=== PATIENT | female | born 1960 | race Caucasian/White ===

== ENCOUNTER 2021-08-11 19:08 | Inpatient (IN) | payer OTHER, SELFPAY ==
[2021-08-11] VITALS (29 sets, daily range): BP systolic 180–242; BP diastolic 105–144; PULSE 75–101; RESP 8–84; TEMP 36.1–36.4; O2SAT 86–100
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
--- NOTE | ~2021-08-11 | US_ITS ---
EXAMINATION: US renal BI DATE: 08/13/2021 11:53 INDICATION: Acute kidney injury. TECHNIQUE: Multiple ultrasound grayscale images of the kidneys were obtained. COMPARISON: Chest CT 08/11/2021 FINDINGS: The right kidney measures 9.3 x 5.1 x 5.1 cm. The left kidney measures 10.6 x 4.9 x 5.2 cm. The kidne ys demonstrate normal parenchymal echogenicity. There is no hydronephrosis. The bladder is normal. Th ere is dependent echogenic urine. IMPRESSION: 1. Normal kidneys. No hydronephrosis. Reviewed, dictated and finalized at location A. DOCTORAL SCIENTIST
--- NOTE | ~2021-08-11 | XR_ITS ---
EXAMINATION: XR chest 2V EXAM DATE: 08/11/2021 19:53 INDICATION: Sudden SOB @ 6 PM,Sweating,HX HTN. TECHNIQUE: Frontal and lateral projections of the chest obtained and reviewed. There is no prior corinne dy for comparison. FINDINGS: There is a dual lead pacemaker/AICD seen with leads projecting over the expected locations of the right atrial appendage and right ventricle. Mild cardiomegaly. There is ill-defined bibasilar airspace disease, pneumonia or edema. Please clinically correlate. No pneumothorax. There are no oss eous abnormalities identified. IMPRESSION: Cardiomegaly, ill-defined bibasilar pneumonia or edema. Reviewed, dictated and finalized at location A. BAKERY LABORER
--- NOTE | 2021-08-11 19:36 | ECG_ITS ---
Measurements Intervals [place] Rate: 80 P: 72 MN: 202 QRS: -72 QRSD: 196 T: 96 QT: 445 QTc: 514 Interpretive Statements ATRIAL SENSE- ELECTRONIC VENTRICULAR PACEMAKER BASELINE ARTIFACT- I, III, AVL NO FURTHER INTERPRETATION IS POSSIBLE ATYPICAL ECG Electronically Signed On 08-12-2021 6:54:24 STAFF MECHANICAL ENGINEER by Blayne Deng D.O.
--- NOTE | 2021-08-11 19:41 | PC.NURSE ---
PT PLACED ON 2 L NC IN TRIAGE.
[2021-08-11 20:52] LABS: Basophils Absolute Auto 0.1 K/mm3 (0.0-0.1); Basophils Percent Auto 1.1 % (0.2-1.2); Eosinophils Absolute Auto 0.3 K/mm3 (0-0.3); Eosinophils Percent Auto 2.2 % (0-4.4); Hematocrit 46.7 % (37.0-47.0); Hemoglobin 16.2 g/dL (12.0-15.0); Immature Granulocyte Absolute 0.07 K/mm3 (0.00-0.031); Immature Granulocyte Percent A 0.6 % (0-0.5); Lymphocytes Absolute Auto 2.06 K/mm3 (0.9-3.2); Lymphocytes Percent Auto 17.1 % (18.3-44.2); Mean Corpuscular HGB Conc 34.7 g/dl (32-36); Mean Corpuscular Hemoglobin 32.5 pg (26-34); Mean Corpuscular Volume 93.8 fl (80-100); Mean Platelet Volume 11.1 fl (7.4-10.4); Monocytes Absolute Auto 0.6 K/mm3 (0.1-0.6); Monocytes Percent Auto 5.2 % (2.6-8.5); Neutrophils Absolute Auto 8.9 K/mm3 (1.3-6.7); Neutrophils Percent Auto 73.8 % (45.5-73.1); Platelet Count Result 321 k/mm3 (150-375); Red Blood Count 4.98 M/mm3 (4.2-5.4); White Blood Count 12.1 K/mm3 (4.5-10.0)
[2021-08-11 21:02] LABS: Anion Gap 10 mmol/L (8-16); Blood Urea Nitrogen 28 mg/dL (7-17); Calcium 10.5 mg/dL (8.4-10.2); Carbon Dioxide 28 mmol/L (22-30); Chloride 98 mmol/L (98-107); Estimated CRCL calculation 41 ml/min; Estimated Glomerular Filt Rate 33; Glucose 389 mg/dL (65-110); Lactic Acid Reflex 2.1 mmol/L (0.7-2.1); Potassium 4.5 mmol/L (3.4-5.0); Sodium 136 mmol/L (137-145)
[2021-08-11 21:04] LABS: CRP < 0.5 mg/dL (<1.0); INR 0.9; Prothrombin Time 11.7 Seconds (11.1-14.7)
[2021-08-11 21:07] LABS: D Dimer 1.73 ug/mL (<0.48)
[2021-08-11 21:16] LABS: NT Pro B Type Natriuretic Pept 3630 pg/mL (5-100); Troponin I 0.039 ng/mL (0.000-0.034)
[2021-08-11 21:19] LABS: Lactate Dehydrogenase 540 U/L (313-618)
[2021-08-11] MEDS: ASPIRIN 81 MG CHEWABLE TABLET 324 MG PO (22:07)
[2021-08-11] MEDS: FUROSEMIDE INJ 40 MG/4 ML VIAL IV PUSH (22:07)
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
--- NOTE | 2021-08-11 22:15 | PC.NURSE ---
MD aware of Pt BP. Ordered PO carvedilol
[2021-08-11] MEDS: carvediloL 12.5 MG TABLET PO (22:37)
--- NOTE | 2021-08-11 23:36 | PC.NURSE ---
Alysia drawing 3 hour tropinin, Admit to IMU 206-1 after drawn
--- NOTE | 2021-08-11 23:43 | PC.NURSE ---
3 hour troponin would not show on [facility]. Order cancelled, re-entered STAT trop now.
[2021-08-11 23:49] LABS: Reflex Lactic Acid Yes or No Add Lactic
[2021-08-12] VITALS (15 sets, daily range): BP systolic 130–176; BP diastolic 71–124; PULSE 74–102; RESP 16–24; TEMP 36.2–36.9; O2SAT 93–100; BMI 34.5
--- NOTE | 2021-08-12 | ECHO_ITS ---
Patient Info Name: Michelle Trent Age: 61 years : 1960 Gender: Female Ht: 68 in Wt: 228 lbs BSA: 2.27 m2 HR: 78 bpm BP: 153 / 88 mmHg Heart Rhythm: Sinus Rhythm Technical Quality: Good Exam Date: 08/12/2021 12:05 PM Exam Location: [facility] Patient Status: Inpatient Admit Date: 08/11/2021 Staff Ordering Physician: Angelo Vasquez MD Attending Provider: Uzma Moreno MD Referring Physician: Pedro POOLE; Exam Type: CA echo doppler color flow Study Info Indications - chf Complete two-dimensional, color flow and Doppler transthoracic echocardiogram is performed. Summary 1. Complete two-dimensional, color flow and Doppler transthoracic echocardiogram is performed. 2. Left ventricular chamber dimension is mildly enlarged. 3. Left ventricular systolic function is normal, estimated at 55-60%. 4. There is moderately increased left ventricular wall thickness. 5. Left ventricular septal wall motion is normal. 6. The left ventricular diastolic function is grade I diastolic dysfunction. 7. Left atrial chamber dimension is mildly enlarged. 8. There is mild mitral valve regurgitation. 9. There is mild tricuspid valve regurgitation. Left Ventricle Left ventricular chamber dimension is mildly enlarged. Left ventricular systolic function is normal, estimated at 55-60%. There is moderately increased left ventricular wall thickness. Left ventricular septal wall motion is normal. The left ventricular diastolic function is grade I diastolic dysfunction. Right Ventricle Right ventricular chamber dimension is normal. Right ventricular systolic function is normal. Left Atria Left atrial chamber dimension is mildly enlarged. Right Atria Right atrial chamber dimension is normal. Linear artifact in the right atrium suggestive of catheter(s), pacemaker lead(s), or ICD lead(s). Atrial Septum Intact interatrial septum visualized by color flow imaging. Aortic Valve The aortic valve is trileaflet. There is mild aortic valve sclerosis. There is no aortic valve stenosis. There is trace aortic valve regurgitation. Pulmonic Valve The pulmonic valve is normal. There is no pulmonic valve stenosis. There is trace pulmonic regurgitation. Mitral Valve The mitral valve has calcified annulus. There is no mitral valve stenosis. There is mild mitral valve regurgitation. Tricuspid Valve The tricuspid valve leaflets are normal. There is no significant tricuspid valve stenosis. There is mild tricuspid valve regurgitation. No pulmonary hypertension, estimated pulmonary arterial systolic pressure is 20 mmHg. Pericardium/Pleural The pericardium appears normal. There is no pericardial effusion. Inferior Vena Cava Normal inferior vena cava with <50% collapse upon inspiration consistent with elevated right atrial pressure, 10 mmHg. Aorta The aortic root size at the sinus of Valsalva is normal. Left Ventricular Outflow Tract Name Value Normal LVOT 2D LVOT Diameter 2.1 cm LVOT Doppler LVOT Peak Gradient 4 mmHg LVOT Mean Gradient
[2021-08-12 00:24] LABS: Troponin I 0.051 ng/mL (0.000-0.034)
--- NOTE | 2021-08-12 00:44 | ADMGEN ---
This patient, Michelle Trent, was admitted to IMU Room 206-01 on 08/11/21 at 2357. Patient/family oriented to hospital policies and general routines including ID bracelet, bed and alarms, visiting hours, pain management, procedures, bathroom and other care routines, personal items, smoking policy, room service/diet, and visiting hours. Information on how to activate the Rapid Response Team has been discussed. Patient/Family are encouraged to report perceived risks to care and to ask questions if they do not understand what they are told or what they should do.
[2021-08-12 00:54] LABS: Lactic Acid 1.6 mmol/L (0.7-2.1)
[2021-08-12] MEDS: GABAPENTIN 300 MG CAPSULE 600 MG PO ×4 (02:43→18:09)
[2021-08-12] MEDS: ATORVASTATIN 20 MG TABLET PO ×2 (02:44→20:09)
[2021-08-12 03:55] LABS: Basophils Absolute Auto 0.1 K/mm3 (0.0-0.1); Basophils Percent Auto 0.9 % (0.2-1.2); Eosinophils Absolute Auto 0.1 K/mm3 (0-0.3); Eosinophils Percent Auto 1.2 % (0-4.4); Hematocrit 45.6 % (37.0-47.0); Hemoglobin 15.9 g/dL (12.0-15.0); Immature Granulocyte Absolute 0.05 K/mm3 (0.00-0.031); Immature Granulocyte Percent A 0.4 % (0-0.5); Lymphocytes Absolute Auto 3.19 K/mm3 (0.9-3.2); Lymphocytes Percent Auto 28.2 % (18.3-44.2); Mean Corpuscular HGB Conc 34.9 g/dl (32-36); Mean Corpuscular Hemoglobin 32.3 pg (26-34); Mean Corpuscular Volume 92.5 fl (80-100); Mean Platelet Volume 11.1 fl (7.4-10.4); Monocytes Absolute Auto 0.9 K/mm3 (0.1-0.6); Monocytes Percent Auto 7.7 % (2.6-8.5); Neutrophils Percent Auto 61.6 % (45.5-73.1); Platelet Count Result 338 k/mm3 (150-375); Red Blood Count 4.93 M/mm3 (4.2-5.4); Red Cell Distribution Width 12.9 % (11.5-14.5); White Blood Count 11.3 K/mm3 (4.5-10.0)
[2021-08-12 04:25] LABS: Anion Gap 10 mmol/L (8-16); Blood Urea Nitrogen 29 mg/dL (7-17); Calcium 10.3 mg/dL (8.4-10.2); Carbon Dioxide 32 mmol/L (22-30); Chloride 94 mmol/L (98-107); Estimated CRCL calculation 43 ml/min; Estimated Glomerular Filt Rate 33; Glucose 287 mg/dL (65-110); Potassium 4.2 mmol/L (3.4-5.0); Sodium 136 mmol/L (137-145)
[2021-08-12 04:32] LABS: Troponin I 0.071 ng/mL (0.000-0.034)
[2021-08-12] MEDS: LEVOTHYROXINE SODIUM 112 MCG TABLET PO (06:16)
[2021-08-12 08:03] LABS: Glucose Point of Care 241 mg/dl (65-105)
[2021-08-12] MEDS: ASPIRIN 81 MG ENTERIC TABLET PO (08:41)
[2021-08-12] MEDS: FUROSEMIDE INJ 40 MG/4 ML VIAL IV PUSH (08:42)
[2021-08-12] MEDS: lisinopriL 5 MG TABLET PO (08:42)
[2021-08-12] MEDS: INSULIN GLARGINE (*BKC) 100 UNITS/ML 45 UNITS SUB-Q (09:00)
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
[2021-08-12 13:32] LABS: Glucose Point of Care 268 mg/dl (65-105)
[2021-08-12] MEDS: carvediloL 12.5 MG TABLET BY MOUTH ×2 (13:48→18:10)
[2021-08-12 17:10] LABS: Glucose Point of Care 341 mg/dl (65-105)
--- NOTE | 2021-08-12 17:20 | PHAR ---
HOME MED Liraglutide [Victoza 2-Aden] 0.6 mg/0.1 mL (18 mg/3 mL) pen injector has been verified by Pharmacist.
[2021-08-12] MEDS: INSULIN ASPART (*BKC) 100 UNITS/ML SUB-Q (18:10)
[2021-08-12 21:15] LABS: Glucose Point of Care 293 mg/dl (65-105)
[2021-08-13] VITALS (18 sets, daily range): BP systolic 106–170; BP diastolic 70–91; PULSE 70–99; RESP 16–20; TEMP 36.3–37.1; O2SAT 93–96
[2021-08-13 05:03] LABS: Anion Gap 7 mmol/L (8-16); Blood Urea Nitrogen 38 mg/dL (7-17); Calcium 9.1 mg/dL (8.4-10.2); Carbon Dioxide 32 mmol/L (22-30); Chloride 97 mmol/L (98-107); Estimated CRCL calculation 30 ml/min; Estimated Glomerular Filt Rate 22; Glucose 196 mg/dL (65-110); Potassium 4.2 mmol/L (3.4-5.0); Sodium 136 mmol/L (137-145)
[2021-08-13] MEDS: LEVOTHYROXINE SODIUM 112 MCG TABLET PO (05:16)
[2021-08-13] MEDS: ASPIRIN 81 MG ENTERIC TABLET PO (08:15)
[2021-08-13] MEDS: lisinopriL 5 MG TABLET PO (08:15)
[2021-08-13] MEDS: GABAPENTIN 300 MG CAPSULE 600 MG PO ×3 (08:16→17:45)
[2021-08-13] MEDS: FUROSEMIDE INJ 40 MG/4 ML VIAL IV PUSH (08:16)
[2021-08-13 08:45] LABS: Glucose Point of Care 216 mg/dl (65-105)
[2021-08-13] MEDS: INSULIN ASPART (*BKC) 100 UNITS/ML SUB-Q ×3 (09:04→17:46)
[2021-08-13] MEDS: INSULIN GLARGINE (*BKC) 100 UNITS/ML 45 UNITS SUB-Q (09:04)
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
[2021-08-13 12:44] LABS: Glucose Point of Care 274 mg/dl (65-105)
[2021-08-13 13:02] LABS: Add Urine Microscopic? YES; Appearance Urine Cloudy (Clear); Bacteria Urine 3+ /hpf; Bilirubin Urine Negative (Negative); Blood Urine 1+ (Negative); Color Urine Yellow (Yellow); Glucose Urine UA Negative (Negative); Ketones Urine Negative (Negative); Leukocyte Esterase Ur 3+ LEU/UL (Negative); Nitrate Urine Negative (Negative); Protein Urine 2+ mg/dL (Negative); Squamous Epithelial Cell Urine Few /hpf (Few); Urobilinogen Urine Negative mg/dL (<2.0); WBC Clumps Urine Present /HPF; WBC Urine >75 /hpf
[2021-08-13] MEDS: carvediloL 12.5 MG TABLET BY MOUTH ×2 (13:22→17:45)
[2021-08-13] MEDS: ACETAMINOPHEN 325 MG TABLET 650 MG PO (15:34)
[2021-08-13 15:55] LABS: Albumin Level 4.1 g/dL (3.5-5.1); Anion Gap 10 mmol/L (8-16); Blood Urea Nitrogen 39 mg/dL (7-17); Calcium 9.1 mg/dL (8.4-10.2); Carbon Dioxide 29 mmol/L (22-30); Chloride 96 mmol/L (98-107); Estimated CRCL calculation 28 ml/min; Estimated Glomerular Filt Rate 20; Glucose 203 mg/dL (65-110); Phosphorus 4.7 mg/dL (2.5-4.5); Sodium 135 mmol/L (137-145)
[2021-08-13 19:56] LABS: Glucose Point of Care 210 mg/dl (65-105)
[2021-08-13] MEDS: ATORVASTATIN 20 MG TABLET PO (20:02)
[2021-08-13 21:16] LABS: Glucose Point of Care 245 mg/dl (65-105)
[2021-08-14] VITALS (16 sets, daily range): BP systolic 150–183; BP diastolic 81–99; PULSE 63–93; RESP 14–20; TEMP 36.2–37.3; O2SAT 94–99
[2021-08-14 05:53] LABS: Hematocrit 39.9 % (37.0-47.0); Hemoglobin 13.5 g/dL (12.0-15.0); Mean Corpuscular HGB Conc 33.8 g/dl (32-36); Mean Corpuscular Hemoglobin 31.6 pg (26-34); Mean Corpuscular Volume 93.4 fl (80-100); Mean Platelet Volume 11.2 fl (7.4-10.4); Platelet Count Result 333 k/mm3 (150-375); Red Blood Count 4.27 M/mm3 (4.2-5.4); Red Cell Distribution Width 12.9 % (11.5-14.5); White Blood Count 11.9 K/mm3 (4.5-10.0)
[2021-08-14 05:58] LABS: Albumin Level 3.7 g/dL (3.5-5.1); Anion Gap 10 mmol/L (8-16); Blood Urea Nitrogen 41 mg/dL (7-17); Calcium 9.2 mg/dL (8.4-10.2); Carbon Dioxide 28 mmol/L (22-30); Chloride 96 mmol/L (98-107); Estimated CRCL calculation 25 ml/min; Estimated Glomerular Filt Rate 17; Glucose 231 mg/dL (65-110); Phosphorus 4.6 mg/dL (2.5-4.5); Potassium 4.1 mmol/L (3.4-5.0); Sodium 134 mmol/L (137-145)
[2021-08-14] MEDS: LEVOTHYROXINE SODIUM 112 MCG TABLET PO (06:09)
[2021-08-14 08:14] LABS: Glucose Point of Care 183 mg/dl (65-105)
[2021-08-14] MEDS: GABAPENTIN 300 MG CAPSULE 600 MG PO ×3 (08:29→17:25)
[2021-08-14] MEDS: ASPIRIN 81 MG ENTERIC TABLET PO (08:29)
[2021-08-14] MEDS: GLIMEPIRIDE 2 MG TABLET 4 MG PO (08:29)
[2021-08-14] MEDS: INSULIN GLARGINE (*BKC) 100 UNITS/ML 45 UNITS SUB-Q (08:29)
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
[2021-08-14 12:28] LABS: Glucose Point of Care 271 mg/dl (65-105)
[2021-08-14] MEDS: carvediloL 12.5 MG TABLET BY MOUTH ×2 (12:36→17:25)
[2021-08-14] MEDS: ACETAMINOPHEN 325 MG TABLET 650 MG PO (12:37)
[2021-08-14] MEDS: INSULIN ASPART (*BKC) 100 UNITS/ML SUB-Q ×2 (12:37→17:24)
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
[2021-08-14 12:53] LABS: Creatinine Urine 41.9 mg/dL; Urea Random Urine 231 MG/DL
[2021-08-14 13:18] LABS: Sodium Urine Random 24 meq/L
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
[2021-08-14 16:42] LABS: Glucose Point of Care 212 mg/dl (65-105)
--- NOTE | 2021-08-14 18:43 | PC.NURSE ---
This patient, Michelle Trent, was transferred to [[id number] ] on 08/14/21 at 1820. Personal belongings sent with patient. Report given to [ RUBINA Myers @ 1810]. Appropriate documentation sent with patient.
[2021-08-14] MEDS: ATORVASTATIN 20 MG TABLET PO (21:45)
[2021-08-14 22:14] LABS: Glucose Point of Care 161 mg/dl (65-105)
[2021-08-15] VITALS (11 sets, daily range): BP systolic 142–187; BP diastolic 76–132; PULSE 75–80; RESP 16–20; TEMP 36.1–36.3; O2SAT 94–97
[2021-08-15] MEDS: LEVOTHYROXINE SODIUM 112 MCG TABLET PO (05:30)
[2021-08-15 07:01] LABS: Basophils Absolute Auto 0.1 K/mm3 (0.0-0.1); Basophils Percent Auto 0.9 % (0.2-1.2); Eosinophils Absolute Auto 0.5 K/mm3 (0-0.3); Hematocrit 41.1 % (37.0-47.0); Hemoglobin 14.1 g/dL (12.0-15.0); Immature Granulocyte Absolute 0.05 K/mm3 (0.00-0.031); Immature Granulocyte Percent A 0.5 % (0-0.5); Lymphocytes Absolute Auto 3.32 K/mm3 (0.9-3.2); Lymphocytes Percent Auto 31.3 % (18.3-44.2); Mean Corpuscular HGB Conc 34.3 g/dl (32-36); Mean Corpuscular Hemoglobin 32.1 pg (26-34); Mean Corpuscular Volume 93.6 fl (80-100); Mean Platelet Volume 11.3 fl (7.4-10.4); Monocytes Absolute Auto 1.2 K/mm3 (0.1-0.6); Monocytes Percent Auto 11.2 % (2.6-8.5); Neutrophils Absolute Auto 5.4 K/mm3 (1.3-6.7); Neutrophils Percent Auto 51.1 % (45.5-73.1); Platelet Count Result 331 k/mm3 (150-375); Red Blood Count 4.39 M/mm3 (4.2-5.4); Red Cell Distribution Width 13.1 % (11.5-14.5); White Blood Count 10.6 K/mm3 (4.5-10.0)
[2021-08-15 07:26] LABS: Anion Gap 7 mmol/L (8-16); Blood Urea Nitrogen 39 mg/dL (7-17); Calcium 9.4 mg/dL (8.4-10.2); Carbon Dioxide 32 mmol/L (22-30); Chloride 99 mmol/L (98-107); Estimated CRCL calculation 31 ml/min; Estimated Glomerular Filt Rate 22; Glucose 186 mg/dL (65-110); Potassium 4.4 mmol/L (3.4-5.0); Sodium 138 mmol/L (137-145)
[2021-08-15 08:03] LABS: Glucose Point of Care 180 mg/dl (65-105)
[2021-08-15] MEDS: ASPIRIN 81 MG ENTERIC TABLET PO (08:10)
[2021-08-15] MEDS: GLIMEPIRIDE 2 MG TABLET 4 MG PO (08:10)
[2021-08-15] MEDS: amLODIPine BESYLATE 5 MG TABLET PO (08:10)
[2021-08-15] MEDS: GABAPENTIN 300 MG CAPSULE 600 MG PO ×3 (08:10→16:56)
[2021-08-15] MEDS: INSULIN GLARGINE (*BKC) 100 UNITS/ML 55 UNITS SUB-Q (08:18)
[2021-08-15] MEDS: hydrALAZINE HCL 20 MG/ML VIAL 10 MG IV PUSH (08:38)
[2021-08-15] MEDS: carvediloL 12.5 MG TABLET BY MOUTH ×2 (08:39→16:57)
[2021-08-15 12:14] LABS: Glucose Point of Care 294 mg/dl (65-105)
[2021-08-15] MEDS: INSULIN ASPART (*BKC) 100 UNITS/ML SUB-Q ×2 (12:44→16:58)
--- NOTE | 2021-08-15 14:34 | PM.PNNEP ---
Progress Note: A&P Assessment and Plan (1) MAX (acute kidney injury): Code(s): N17.9 - Acute kidney failure, unspecified Status: Acute Assessment and Plan: slow improvement noted multifactorial: contrast exposure ongoing MARLENY-I use relative hypotension/ overcontrol of blood pressure (200 systolic readings on admission with readings down to 130s in the past 48 hours) +/- diuresis renal ultrasound normal urine electrolytes noted would alow BP to run in the 150 - 160s systolic range follow repeat labs and UOP (2) CKD (chronic kidney disease): Code(s): N18.9 - Chronic kidney disease, unspecified Status: Chronic Assessment and Plan: has known CKD but not clear on specifics follows with Dr. Sheppard at [facility] (3) Acute respiratory failure with hypoxia: Code(s): J96.01 - Acute respiratory failure with hypoxia Status: Acute Assessment and Plan: presumably flash pulmonary edema secondary to HTN urgency doing better at this time continue supportive therapy (4) Hypertension: Code(s): I10 - Essential (primary) hypertension Status: Chronic Assessment and Plan: poor control at baseline(?) quite elevated on admission given #1 -- try to aim to keep systolic BP 150 - 160 systolic range follow hemodynamics (5) Diabetes: Code(s): E11.9 - Type 2 diabetes mellitus without complications Status: Chronic Assessment and Plan: follow accuchecks glycemic control Will continue to follow. Subjective Date/time seen: 08/15/21 14:34 Overall, she seems to be doing significantly better in comparison to admission; renal function appears slightly better at this time; no other acute issues/events overnight or earlier this morning; asking me about potential discharge from the hospital. Exam Narrative: General: WD/WN female in NAD Heart: normal S1 and S2; no rub Lungs: decreased at bases Abdomen: soft, nontender, nondistended, positive bowel sounds Extremities: no cyanosis or clubbing; trace edema Skin: warm and dry Objective Data Vital Signs Vital Signs: Vital Signs Temp Pulse Resp BP Pulse Ox 08/15/21 14:01 149/132 H 08/15/21 14:00 36.2 C L 79 16 163/84 H 97 08/15/21 10:45 182/92 H 08/15/21 08:39 80 08/15/21 08:11 174/104 H 08/15/21 08:10 154/107 H 08/15/21 06:00 36.3 C L 80 20 177/101 H 94 08/14/21 23:40 95 08/14/21 21:25 36.2 C L 79 18 183/99 H 94 Intake/Output Intake/Output: Intake & Output 08/12/21 08/13/21 08/14/21 08/15/21 23:59 23:59 23:59 23:59 Intake Total 2170 1140 3020 2040 Output Total 2050 1850 2700 2300 Balance 120 -710 320 -260 Meds/Results Medications: Active Medications Generic Name Dose Route Start Last Admin Trade Name Freq PRN Reason Stop Dose Admin Acetaminophen 650 mg 08/13/21 15:25 08/14/21 12:37 Acetaminophen 325 Mg Tablet PO 650 mg Q6H PRN Administration Mild Pain (1-3) or Fever Amlodipine Besylate 10 mg 08/16/21 09:00 Amlodipine Besylate 5 Mg Tablet PO QAM FELICITAS Aspirin 81 mg 08/12/21 09:00 08/15/21 08:10 Aspirin 81 Mg Enteric Tablet PO 81 mg QAM FELICITAS Administration Atorvastatin Calcium 20 mg 08/12/21 21:00 08/14/21 21:45 Atorvastatin 20 Mg Tablet PO 20 mg HS FELICITAS Administration Carvedilol 12.5 mg 08/12/21 12:00 08/15/21 16:57 Carvedilol 12.5 Mg Tablet BY MOUTH 12.5 mg 1200,1800 FELICITAS Administration Dextrose 12.5 gm 08/12/21 17:21 Dextrose 50% 25 Gm/50 Ml Syringe IV PUSH PRN PRN Hypoglycemia Protocol Gabapentin 600 mg 08/12/21 09:00 08/15/21 16:56 Gabapentin 300 Mg Capsule PO 600 mg TID FELICITAS Administration Glimepiride 4 mg 08/14/21 09:00 08/15/21 08:10 Glimepiride 2 Mg Tablet PO 09/13/21 08:59 4 mg QAM FELICITAS Administration Glucagon 1 mg 08/12/21 17:21 Glucagon For Inj 1 Mg Vial IM
--- NOTE | 2021-08-15 14:34 | P.PNNP_ITS ---
Progress Note: A&P Assessment and Plan (1) MAX (acute kidney injury): Code(s): N17.9 - Acute kidney failure, unspecified Status: Acute Assessment and Plan: * slow improvement noted * multifactorial: * contrast exposure * ongoing MARLENY-I use * relative hypotension/ overcontrol of blood pressure (200 systolic readings on admission with readings down to 130s in the past 48 hours) * +/- diuresis * renal ultrasound normal * urine electrolytes noted * would alow BP to run in the 150 - 160s systolic range * follow repeat labs and UOP (2) CKD (chronic kidney disease): Code(s): N18.9 - Chronic kidney disease, unspecified Status: Chronic Assessment and Plan: * has known CKD but not clear on specifics * follows with Dr. Sheppard at [facility] (3) Acute respiratory failure with hypoxia: Code(s): J96.01 - Acute respiratory failure with hypoxia Status: Acute Assessment and Plan: * presumably flash pulmonary edema secondary to HTN urgency * doing better at this time * continue supportive therapy (4) Hypertension: Code(s): I10 - Essential (primary) hypertension Status: Chronic Assessment and Plan: * poor control at baseline(?) * quite elevated on admission * given #1 -- try to aim to keep systolic BP 150 - 160 systolic range * follow hemodynamics (5) Diabetes: Code(s): E11.9 - Type 2 diabetes mellitus without complications Status: Chronic Assessment and Plan: * follow accuchecks * glycemic control Will continue to follow. Subjective Date/time seen: 08/15/21 14:34 Overall, she seems to be doing significantly better in comparison to admission; renal function appears slightly better at this time; no other acute issues/events overnight or earlier this morning; asking me about potential discharge from the hospital. Exam Narrative: General: WD/WN female in NAD Heart: normal S1 and S2; no rub Lungs: decreased at bases Abdomen: soft, nontender, nondistended, positive bowel sounds Extremities: no cyanosis or clubbing; trace edema Skin: warm and dry Objective Data Vital Signs Vital Signs: Vital Signs Temp Pulse Resp BP Pulse Ox 08/15/21 14:01 149/132 H 08/15/21 14:00 36.2 C L 79 16 163/84 H 97 08/15/21 10:45 182/92 H 08/15/21 08:39 80 08/15/21 08:11 174/104 H 08/15/21 08:10 154/107 H 08/15/21 06:00 36.3 C L 80 20 177/101 H 94 08/14/21 23:40 95 08/14/21 21:25 36.2 C L 79 18 183/99 H 94 Intake/Output Intake/Output: Intake & Output 08/12/21 08/13/21 08/14/21 08/15/21 23:59 23:59 23:59 23:59 Intake Total 2170 1140 3020 2040 Output Total 2050 1850 2700 2300 Balance 120 -710 320 -260 Meds/Results Medications: Active Medications Generic Name Dose Route Start Last Admin Trade Name Freq PRN Reason Stop Dose Admin Acetaminophen 650 mg 08/13/21 15:25 08/14/21 12:37 Acetaminophen 325 Mg Tablet PO 650 mg Q6H PRN Administration Mild Pain (1-3) or Fever Amlodipine Besylate 10 mg 08/16/21 09:00 Amlodipine Besylate 5 Mg Tablet PO [facility] Aspirin 81 mg 08/12/21 09:00 07/31
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
[2021-08-15 17:01] LABS: Glucose Point of Care 225 mg/dl (65-105)
[2021-08-15] MEDS: ACETAMINOPHEN 325 MG TABLET 650 MG PO (21:26)
[2021-08-15] MEDS: ATORVASTATIN 20 MG TABLET PO (21:26)
[2021-08-16 00:39] LABS: Glucose Point of Care 286 mg/dl (65-105)
[2021-08-16 06:00] VITALS: BP 171/92; PULSE 78; RESP 18; TEMP 36.1; O2SAT 98
[2021-08-16] MEDS: LEVOTHYROXINE SODIUM 112 MCG TABLET PO (06:15)
[2021-08-16 08:08] LABS: Glucose Point of Care 173 mg/dl (65-105)
[2021-08-16 08:19] LABS: Albumin Level 4.1 g/dL (3.5-5.1); Anion Gap 12 mmol/L (8-16); Blood Urea Nitrogen 35 mg/dL (7-17); Calcium 9.3 mg/dL (8.4-10.2); Carbon Dioxide 25 mmol/L (22-30); Chloride 102 mmol/L (98-107); Estimated CRCL calculation 37 ml/min; Estimated Glomerular Filt Rate 27; Glucose 179 mg/dL (65-110); Phosphorus 3.7 mg/dL (2.5-4.5); Potassium 4.3 mmol/L (3.4-5.0); Sodium 139 mmol/L (137-145)
[2021-08-16] MEDS: GLIMEPIRIDE 2 MG TABLET 4 MG PO (09:01)
[2021-08-16] MEDS: ASPIRIN 81 MG ENTERIC TABLET PO (09:01)
[2021-08-16] MEDS: amLODIPine BESYLATE 5 MG TABLET 10 MG PO (09:01)
[2021-08-16] MEDS: GABAPENTIN 300 MG CAPSULE 600 MG PO ×3 (09:02→16:47)
[2021-08-16] MEDS: INSULIN GLARGINE (*BKC) 100 UNITS/ML 60 UNITS SUB-Q (09:10)
[2021-08-16 11:47] LABS: Glucose Point of Care 203 mg/dl (65-105)
[2021-08-16 12:26] VITALS: PULSE 88
[2021-08-16] MEDS: carvediloL 12.5 MG TABLET BY MOUTH ×2 (12:26→16:48)
[2021-08-16] MEDS: INSULIN ASPART (*BKC) 100 UNITS/ML SUB-Q (12:30)
[2021-08-16 14:00] VITALS: BP 178/96; PULSE 76; RESP 15; TEMP 36.7; O2SAT 93
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
[2021-08-16 16:48] VITALS: PULSE 88
[2021-08-16 16:54] LABS: Glucose Point of Care 169 mg/dl (65-105)
== END 2021-08-16 17:00 | disposition home or self-care (01) | DRG 133 ==
LOC: ANHED 22:17 → ANHIMU 22:45 → ANH3MEDSUR 08-16 14:38 → ANHIMU 08-18 08:53
PROVIDERS: Internal Medicine; Internal Medicine Nephrology; Admitting Provider Internal Medicine; Emergency Provider Emergency Medicine; PCP Family Medicine; Visit Provider Family Medicine
DX: J96.01 Acute respiratory failure with hypoxia (principal); J81.0 Acute pulmonary edema; N17.9 Acute kidney failure, unspecified; E11.42 Type 2 diabetes mellitus with diabetic polyneuropathy; E11.22 Type 2 diabetes mellitus with diabetic chronic kidney disease; I12.9 Hypertensive chronic kidney disease with stage 1 through stage 4 chronic kidney disease, or unspecified chronic kidney disease; N18.30 Chronic kidney disease, stage 3 unspecified; E11.65 Type 2 diabetes mellitus with hyperglycemia; R77.8 Other specified abnormalities of plasma proteins; E03.9 Hypothyroidism, unspecified; F17.210 Nicotine dependence, cigarettes, uncomplicated; E78.5 Hyperlipidemia, unspecified; Z79.4 Long term (current) use of insulin; Z79.82 Long term (current) use of aspirin; Z95.0 Presence of cardiac pacemaker
CPT/HCPCS: 36415; 71046; 71275; 76775; 80048; 80069; 81001; 82570; 82948; 83605; 83615; 83880; 84300; 84484; 84540; 85025; 85027; 85380; 85610; 85730; 86140; 87040; 87077; 87086; 87088; 87186; 93005; 93306; 96365; 96374; 96375; 96376; 99285; A9270; G0378; J0360; J0696; J1815; J1940; Q9967

== ENCOUNTER 2021-09-17 08:31 | Inpatient (IN) | payer OTHER, SELFPAY ==
[2021-09-17] VITALS (8 sets, daily range): BP systolic 148–179; BP diastolic 86–101; PULSE 78–90; RESP 16–18; TEMP 36.4–36.5; O2SAT 95–98; BMI 35.9
--- NOTE | ~2021-09-17 | CT_ITS ---
. EXAMINATION: CT facial bones wo con DATE: 09/17/2021 13:20 INDICATION: Right temporomandibular joint pain. Right facial swelling. TECHNIQUE: Computed tomography (CT) of the facial bones and maxillofacial region was performed withou t intravenous contrast. Automated exposure control and iterative reconstruction technique were employ ed. The dose-length product was 420.39 mGy-cm. COMPARISON: None. FINDINGS: The right parotid gland is enlarged with increased density and surrounding fat stranding, c onsistent with parotiditis. No sialolith. There is rightward deviation of the nasal septum. There is minimal mucosal thickening in the paranasal sinuses. The mastoid air cells are normal. The temporoman dibular joints are normal. There is severe cervical spondylosis. IMPRESSION: 1. Right-sided parotiditis. Reviewed, dictated and finalized at location A. ER [facility] IMPRESSION: 1. Right-sided parotiditis.
--- NOTE | 2021-09-17 10:23 | ED.GENADULT ---
HPI - General Adult General Chief complaint: Dental/Oral Stated complaint: swollen rt face Time Seen by Provider: 09/17/21 10:04 Source: patient Mode of arrival: ambulatory Limitations: no limitations History of Present Illness HPI narrative: Patient presents for evaluation of right-sided facial pain and swelling for the last 3 days. She cannot identify any precipitating cause. She states she has had similar symptoms in the past that have resolved without intervention. She states at rest her pain level is 6/10 but is 11 out of 10 with palpation of the area. No fever, chills, nausea, vomiting. She is diabetic. Compliant with all diabetic medications. States she has lost all of her teeth over the years. Denies any pain in the gumline. She has taken tylenol for pain with some improvement in her symptoms thereafter. Related Data Home Medications Medication Instructions Recorded Confirmed Lantus Solostar U-100 Insulin 45 unit SUBCUT QAM 08/12/21 08/12/21 Victoza 2-Aden 0.6 mg SUBCUT DAILY 08/12/21 08/12/21 aspirin 81 mg PO DAILY 08/12/21 08/12/21 atorvastatin 20 mg PO HS 08/12/21 08/12/21 carvedilol See Rx Instructions .ROUTE .COMPLEX 08/12/21 08/12/21 gabapentin 600 mg PO TID 08/12/21 08/12/21 glimepiride 4 mg PO QAM 08/12/21 08/12/21 levothyroxine [Euthyrox] 112 mcg PO DAILY 08/12/21 08/12/21 lisinopril 5 mg PO QAM 08/12/21 08/12/21 mupirocin 1 applic TOPICAL DAILY PRN 08/12/21 08/12/21 pen needle, diabetic [BD 08/12/21 08/12/21 Ultra-Fine Mini Pen Needle] Allergies Allergy/AdvReac Type Severity Reaction Status Date / Time codeine AdvReac Vomiting Verified 09/17/21 14:20 morphine AdvReac Vomiting Verified 09/17/21 14:20 tramadol AdvReac Vomiting Verified 09/17/21 14:20 Review of Systems Review of Systems: CONSTITUTIONAL: Denies fever, chills, or sweats. EYES: Denies visual changes, redness, or discharge. ENT: Reports right-sided facial pain and swelling. Denies rhinorrhea, congestion, sore throat, or otalgia. CARDIOVASCULAR: Denies chest pain, palpitations, or edema. RESPIRATORY: Denies cough or dyspnea. GASTROINTESTINAL: Denies abdominal pain, nausea, vomiting, or diarrhea. GENITOURINARY: Denies dysuria or hematuria. SKIN: Denies rash or itching. MUSCULOSKELETAL: Denies back pain, joint pain, or myalgia. NEUROLOGIC: Denies headache, numbness, dizziness, or weakness. PSYCHIATRIC: Denies anxiety or depression. [facility] Past Medical History Medical History (Updated 09/17/21 @ 14:32 by CYNTHIA Lockhart, ) Hyperlipidemia Hypertension Hypothyroidism Pacemaker Type 2 diabetes mellitus with hyperglycemia, with long-term current use of insulin Surgical History Surgical History S/P placement of cardiac pacemaker Family History Family History Mother Diabetes mellitus Father Hyperthyroidism Parkinson disease Sibling Hyperthyroidism Gout Social History Social History Smoking packs per day: 1 Smoking cigarettes per day: 20.0 Years smoked: 20 Smoking pack-years: 20.00 Smoking status: Current every day smoker Tobacco type: cigarettes Alcohol intake: never Substance use: current Substance use type: marijuana Last use: 08/04/21 Spiritual care concerns: No Exam Narrative: GENERAL: Well-appearing, well-nourished, and in no acute distress. HEAD: Atraumatic. There is an approximately 5 cm area of soft tissue swelling with associated induration to right TMJ which is tender to palpation EYES: PERRLA and EOMI. ENT: Nares clear, no rhinorrhea or epistaxis. Mucous membranes moist. Edentulous. Oropharynx without tonsillar hypertrophy exudate or other lesions. Bilateral TMs pearly antony nonbulging NECK: Supple. No adenopathy or masses. No carotid bruits or JVD CHEST: Clear to auscultation. No respirat
[2021-09-17 11:03] LABS: Basophils Absolute Auto 0.1 K/mm3 (0.0-0.1); Basophils Percent Auto 0.6 % (0.2-1.2); Eosinophils Absolute Auto 0.3 K/mm3 (0-0.3); Eosinophils Percent Auto 1.3 % (0-4.4); Hematocrit 42.2 % (37.0-47.0); Hemoglobin 14.3 g/dL (12.0-15.0); Immature Granulocyte Absolute 0.15 K/mm3 (0.00-0.031); Immature Granulocyte Percent A 0.6 % (0-0.5); Lymphocytes Absolute Auto 2.52 K/mm3 (0.9-3.2); Lymphocytes Percent Auto 10.6 % (18.3-44.2); Mean Corpuscular HGB Conc 33.9 g/dl (32-36); Mean Corpuscular Volume 94.4 fl (80-100); Mean Platelet Volume 10.7 fl (7.4-10.4); Monocytes Absolute Auto 2.3 K/mm3 (0.1-0.6); Monocytes Percent Auto 9.7 % (2.6-8.5); Neutrophils Absolute Auto 18.4 K/mm3 (1.3-6.7); Neutrophils Percent Auto 77.2 % (45.5-73.1); Platelet Count Result 334 k/mm3 (150-375); Red Blood Count 4.47 M/mm3 (4.2-5.4); Red Cell Distribution Width 12.8 % (11.5-14.5); White Blood Count 23.8 K/mm3 (4.5-10.0)
[2021-09-17 11:48] LABS: Erythrocyte Sedimentation Rate 17 mm/hr (0-20)
[2021-09-17 12:44] LABS: Alanine Aminotransferase 32 U/L (4-35); Alkaline Phosphatase 128 U/L (38-126); Anion Gap 11 mmol/L (8-16); Aspartate Amino Transferase 38 U/L (14-36); Bilirubin,Total 0.6 mg/dL (0.2-1.3); Blood Urea Nitrogen 22 mg/dL (7-17); Calcium 9.5 mg/dL (8.4-10.2); Carbon Dioxide 25 mmol/L (22-30); Chloride 98 mmol/L (98-107); Estimated CRCL calculation 38 ml/min; Estimated Glomerular Filt Rate 31; Glucose 263 mg/dL (65-110); Sodium 134 mmol/L (137-145)
[2021-09-17 12:45] LABS: Lactic Acid Reflex 1.2 mmol/L (0.7-2.1)
[2021-09-17 12:48] LABS: CRP 7.6 mg/dL (<1.0)
[2021-09-17] MEDS: SODIUM CHLORIDE 0.9% IV 1,000 ML 999 ML IV CONT (13:31)
--- NOTE | 2021-09-17 14:30 | PM.IMHP ---
H&P: HPI History of Present Illness Date/Time: 09/17/21 14:30Thimeena is a 61-year-old female patient who has been having right side facial pain that started on was a small nodule 3 days ago. The patient could not determine the cause of this pain. The patient stated she had similar symptoms in the past and that it did resolve on its own. She stated that she cannot take narcotics and that her pain level was very high this time when the area is palpated. She had no fevers or chills or nausea vomiting. She is diabetic and her blood sugars have been running high. She is edentulous. She is able to eat drink without difficulty. The patient stated she did not eat anything at today and then took her medicine this morning. She is requesting something to eat at this time. White count is 23.8. H&H 10.6 and 9.7. Sodium is 134. Creatinine is 1.7. Patient does have chronic renal failure and does see a coffee maker servicer at [facility] but the name of Dr. Shipley. The patient had did have an appointment set up to see her coffee maker servicer tomorrow. However her creatinine is much improved from her previous levels. Glucose is 263 today. ENT had been notified and suggested antibiotics. That suggested that patient massage the area and placed the warm soak over the right facial area. Patient has been placed on vancomycin and Zosyn. She has been placed on IV fluids. The patient is being admitted to inpatient services on the date of service of 09/17/2021. Chief Complaint: Right facial pain for 3 days Review of Systems Review of Systems: All systems reviewed & are unremarkable except as noted in HPI and below Constitutional: Constitutional: Reports as per HPI and Reports no additional constitutional complaints Eyes: Eyes: Reports as per HPI and Reports no additional eye complaints ENT: Reports system reviewed and no additional complaints, except as documented and Reports Normal hearing present Cardiovascular: Cardiovascular: Reports no additional cardiovascular complaints Respiratory: Respiratory: Reports no additional respiratory complaints and Reports no additional respiratory complaints Gastrointestinal: Gastrointestinal: Reports as per HPI and Reports no additional gastrointestinal complaints Musculoskeletal: Musculoskeletal: Reports no additional musculoskeletal complaints Integumentary/Breasts: Skin/Breast: Reports system reviewed and no additional complaints, except as docu and Reports as per HPI Neurologic: Reports system reviewed and no additional complaints, except as documented, Reports as per HPI and Reports Normal hearing present Psychiatric: Psychiatric: Reports no additional psychiatric complaints and Reports as per HPI Endocrine: Endocrine: Reports no additional endocrine complaints Hematologic/Lymphatic: Hematologic/Lymphatic: Reports no additional hematologic/lymphatic complaints Allergic/Immunologic: Allergic/Immunologic: Reports no additional allergic/immunologic complaints [facility] Past Medical History Medical History (Updated 09/17/21 @ 14:53 by Viry Pereira NP) CKD (chronic kidney disease) History of CVA (cerebrovascular accident) Hyperlipidemia Hypertension Hypothyroidism Neuropathy Pacemaker Tobacco abuse Type 2 diabetes mellitus with hyperglycemia, with long-term current use of insulin Surgical History Surgical History (Updated 09/17/21 @ 14:47 by Viry Pereira NP) History of tonsillectomy Hx of cholecystectomy S/P placement of cardiac pacemaker Family History Family History Mother Diabetes mellitus Father Hyperthyroidism Parkinson disease Sibling Hyperthyroidism Gout Social History Social History (Updated 09/17/21 @ 14:47 by Viry Pereira NP) Social History: The patient lives with her sister and nephew. 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 She smokes about a pack a cigarettes a day. She denies any marijuana
[2021-09-17] MEDS: hydrALAZINE HCL 20 MG/ML VIAL 10 MG IV PUSH (17:45)
[2021-09-17] MEDS: GABAPENTIN 300 MG CAPSULE 600 MG PO (17:45)
--- NOTE | 2021-09-17 17:48 | PC.NURSE ---
leo from [facility] for hydralyzine 10 mg ivp x1
[2021-09-17] MEDS: fentaNYL CITRATE INJ (*CRX) 100 MCG/2 ML VIAL 25 MCG IV PUSH (19:46)
--- NOTE | 2021-09-17 19:53 | PC.NURSE ---
spoke to leo Hernandez for fentanyl 25 mcg ivp x1, and also enquired about pt Lantus medication. stated that if BG was >200 then would order lntus 45 units sub q x1 this evening
[2021-09-17] MEDS: SODIUM CHLORIDE 0.9% IV 1,000 ML 125 ML IV CONT (20:04)
[2021-09-17] MEDS: carvediloL 12.5 MG TABLET PO (20:04)
[2021-09-17] MEDS: INSULIN GLARGINE (*BKC) 100 UNITS/ML 45 UNITS SUB-Q (22:17)
--- NOTE | 2021-09-17 22:32 | ADMGEN ---
This patient, Michelle Trent, was admitted to [address] [place] [address] Room 304-02. Patient/family oriented to hospital policies and general routines including ID bracelet, bed and alarms, visiting hours, pain management, procedures, bathroom and other care routines, personal items, smoking policy, room service/diet, and visiting hours. Information on how to activate the Rapid Response Team has been discussed. Patient/Family are encouraged to report perceived risks to care and to ask questions if they do not understand what they are told or what they should do.
[2021-09-17 23:05] LABS: Glucose Point of Care 286 mg/dl (65-105)
[2021-09-18] VITALS (7 sets, daily range): BP systolic 148–173; BP diastolic 68–90; PULSE 77–83; RESP 16–24; TEMP 36.5–37.3; O2SAT 93–99
[2021-09-18 00:15] LABS: Glucose Point of Care 310 mg/dl (65-105)
[2021-09-18] MEDS: ATORVASTATIN 20 MG TABLET PO ×2 (02:08→20:05)
[2021-09-18] MEDS: carvediloL 12.5 MG TABLET PO ×2 (02:09→11:39)
[2021-09-18 05:23] LABS: Basophils Absolute Auto 0.1 K/mm3 (0.0-0.1); Basophils Percent Auto 0.5 % (0.2-1.2); Eosinophils Absolute Auto 0.1 K/mm3 (0-0.3); Eosinophils Percent Auto 0.4 % (0-4.4); Hematocrit 39.6 % (37.0-47.0); Hemoglobin 13.3 g/dL (12.0-15.0); Immature Granulocyte Absolute 0.25 K/mm3 (0.00-0.031); Immature Granulocyte Percent A 1.1 % (0-0.5); Lymphocytes Absolute Auto 2.56 K/mm3 (0.9-3.2); Lymphocytes Percent Auto 11.5 % (18.3-44.2); Mean Corpuscular HGB Conc 33.6 g/dl (32-36); Mean Corpuscular Hemoglobin 31.6 pg (26-34); Mean Corpuscular Volume 94.1 fl (80-100); Mean Platelet Volume 10.8 fl (7.4-10.4); Neutrophils Absolute Auto 17.3 K/mm3 (1.3-6.7); Neutrophils Percent Auto 77.5 % (45.5-73.1); Platelet Count Result 327 k/mm3 (150-375); Red Blood Count 4.21 M/mm3 (4.2-5.4); Red Cell Distribution Width 12.8 % (11.5-14.5); White Blood Count 22.3 K/mm3 (4.5-10.0)
[2021-09-18] MEDS: LEVOTHYROXINE SODIUM 112 MCG TABLET PO (05:35)
[2021-09-18] MEDS: SODIUM CHLORIDE 0.9% IV 1,000 ML 125 ML IV CONT ×3 (05:35→23:38)
[2021-09-18 05:40] LABS: Alanine Aminotransferase 32 U/L (4-35); Albumin Level 3.7 g/dL (3.5-5.1); Alkaline Phosphatase 136 U/L (38-126); Anion Gap 10 mmol/L (8-16); Aspartate Amino Transferase 28 U/L (14-36); Bilirubin,Total 0.6 mg/dL (0.2-1.3); Blood Urea Nitrogen 21 mg/dL (7-17); Carbon Dioxide 22 mmol/L (22-30); Chloride 99 mmol/L (98-107); Estimated CRCL calculation 41 ml/min; Estimated Glomerular Filt Rate 31; Glucose 261 mg/dL (65-110); Magnesium 1.9 mg/dL (1.6-2.3); Potassium 3.9 mmol/L (3.4-5.0); Sodium 131 mmol/L (137-145)
[2021-09-18 05:43] LABS: Hemoglobin A1C 8.5 % (<5.7)
[2021-09-18 06:34] LABS: Lactic Acid Reflex 1.1 mmol/L (0.7-2.1)
[2021-09-18 07:51] LABS: Glucose Point of Care 219 mg/dl (65-105)
--- NOTE | 2021-09-18 09:24 | WPDCN ---
Assessment and Plan Assessment and plan (1) Acute parotitis: Code(s): K11.21 - Acute sialoadenitis Status: Acute Assessment and Plan: I recommended increased hydration, Gram-positive staphylococcal coverage, can consider coverage for MRSA if the patient has recently been hospitalized or comes from assisted living facility. I recommended near constant right-sided facial pressure milking by the patient and demonstrated how to do this. The patient states she will try as this is usually very painful. Strict blood sugar control helps as well. If the patient begins to express purulence intraorally, I would recommend culturing this for evaluation into the causative organism. I would trend white count daily. Please call me with any and all questions. HPI Data of Consult Date/Time: 09/18/21 09:24 Requesting Physician: Jessie Churchill MD Primary Care Provider: Cliff RazaMD Consult Narrative Narrative: Michelle Trent is a 61 year old female with a history of worsening facial swelling on the right side. Presents to the ER and now has an in-patient with a CT scan per my read demonstrating right-sided parotitis. Patient reports having diabetes. [facility] Past Medical History Medical History (Updated 09/17/21 @ 14:53 by Viry Pereira NP) CKD (chronic kidney disease) History of CVA (cerebrovascular accident) Hyperlipidemia Hypertension Hypothyroidism Neuropathy Pacemaker Tobacco abuse Type 2 diabetes mellitus with hyperglycemia, with long-term current use of insulin Surgical History Surgical History (Updated 09/17/21 @ 14:47 by Viry Pereira NP) History of tonsillectomy Hx of cholecystectomy S/P placement of cardiac pacemaker Family History Family History Mother Diabetes mellitus Father Hyperthyroidism Parkinson disease Sibling Hyperthyroidism Gout Social History Social History (Updated 09/17/21 @ 14:47 by Viry Pereira NP) Social History: The patient lives with her sister and nephew. 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 She smokes about a pack a cigarettes a day. She denies any marijuana alcohol or illicit drugs. She does not have a durable power patent prosecution attorney for healthcare. Code status full code Smoking packs per day: 1 Smoking cigarettes per day: 20.0 Years smoked: 20 Smoking pack-years: 20.00 Smoking status: Current every day smoker Tobacco type: cigarettes Alcohol intake: never Substance use: never Substance use type: does not use Last use: 08/04/21 Spiritual care concerns: No Meds Home Medications and Allergies Home Medications Medication Instructions Recorded Confirmed Type Lanblaine Solostar U-100 Insulin 45 unit SUBCUT QAM 08/12/21 09/17/21 History Victoza 2-Aden 0.6 mg SUBCUT DAILY 08/12/21 09/17/21 History aspirin 81 mg PO DAILY 08/12/21 09/17/21 History atorvastatin 20 mg PO HS 08/12/21 09/17/21 History carvedilol 12.5 mg PO BID 08/12/21 09/17/21 History gabapentin 600 mg PO TID 08/12/21 09/17/21 History glimepiride 4 mg PO QAM 08/12/21 09/17/21 History levothyroxine [Euthyrox] 112 mcg PO DAILY 08/12/21 09/17/21 History pen needle, diabetic [BD 08/12/21 08/12/21 History Ultra-Fine Mini Pen Needle] amlodipine [Norvasc] 10 mg PO QAM #90 tablet 08/16/21 09/17/21 Rx hydralazine 25 mg PO BID 09/17/21 09/17/21 History Allergies Allergy/AdvReac Type Severity Reaction Status Date / Time codeine AdvReac Vomiting Verified 09/17/21 14:20 morphine AdvReac Vomiting Verified 09/17/21 14:20 tramadol AdvReac Vomiting Verified 09/17/21 14:20 Vital Signs Vital Signs - 24 hr 09/17/21 13:40 09/17/21 16:07 09/17/21 17:48 Temperature Pulse Rate 84 88 87 Respiratory Rate 16 17 16 Blood Pressure 148/86 H 168/100 H 178/101 H Pulse Oximetry 97 98 97 09/17/21 18:44 09/17/21 19:47 09/17/21 20:04 Temperature Pulse Rate 78 9
[2021-09-18] MEDS: GABAPENTIN 300 MG CAPSULE 600 MG PO ×3 (09:31→16:48)
[2021-09-18] MEDS: ASPIRIN 81 MG ENTERIC TABLET PO (09:31)
[2021-09-18] MEDS: ENOXAPARIN 40 MG/0.4 ML SYRINGE SUB-Q (09:31)
[2021-09-18] MEDS: amLODIPine BESYLATE 5 MG TABLET 10 MG PO (09:32)
[2021-09-18] MEDS: GLIMEPIRIDE 2 MG TABLET 4 MG PO (09:32)
[2021-09-18] MEDS: hydrALAZINE HCL 25 MG TABLET PO ×4 (09:32→20:05)
[2021-09-18] MEDS: INSULIN ASPART (*BKC) 100 UNITS/ML SUB-Q ×3 (09:40→16:49)
--- NOTE | 2021-09-18 15:11 | PM.IMPN ---
Progress Note: A&P Assessment and Plan (1) Acute parotitis: Code(s): K11.21 - Acute sialoadenitis Status: Acute Assessment and Plan: ENT has been consulted. Continue vanco and Zosyn. Blood cultures are pending. Patient was instructed to massage the area , apply warm compresses every 4 hours as tolerated. Patient's white count is 23.8. IV Tylenol p.r.n. for discomfort. Patient stated that she does not do well with narcotics and that she has allergies to most narcotics. (2) Diabetes: Code(s): E11.9 - Type 2 diabetes mellitus without complications Status: Chronic Assessment and Plan: Accu-Cheks AC and HS. The patient takes her Lantus in the a.m.. His A1c is 8.5. Fasting blood glucose was 261 today. Accu-Chek was 219. (3) Hyperlipidemia: Code(s): E78.5 - Hyperlipidemia, unspecified Status: Acute Assessment and Plan: Continue with atorvastatin. (4) Hypothyroidism: Code(s): E03.9 - Hypothyroidism, unspecified Status: Acute Assessment and Plan: Continue with levothyroxine. TSH is 3.24. (5) CKD (chronic kidney disease): Code(s): N18.9 - Chronic kidney disease, unspecified Status: Chronic Assessment and Plan: Creatinine is 1.7 today her last creatinine was 1.9 GFR is 31 today and GFR is 27. The patient has a local superintendent at [facility] and had an appointment to see her local superintendent tomorrow and has to cancel it. I explained that I could have the local superintendent see her here however the patient stated she would rather wait and see her is a outpatient. Will continue to monitor her creatinine since it is at her baseline. Please renally dose medications. Avoid nephrotoxic medications, including NSAIDs. (6) Neuropathy: Code(s): G62.9 - Polyneuropathy, unspecified Status: Chronic Assessment and Plan: Continue with gabapentin. (7) Tobacco abuse: Code(s): Z72.0 - Tobacco use Status: Chronic Assessment and Plan: The patient has been consulted on smoking cessation for approximately 5 minutes and the patient stated she does not require a nicotine patch at this time. Subjective Date/time seen: 09/18/21 13:15. S: This is a 61-year-old female patient currently being treated for acute parotitis. Patient has been placed on vancomycin and Zosyn. She has been placed on IV fluids. Patient is examined at the bedside. She reports right facial pain. Appetite is preserved. Review of Systems Review of Systems: All systems reviewed & are unremarkable except as noted in HPI and below Constitutional: Constitutional: Reports as per HPI and Reports no additional constitutional complaints Eyes: Eyes: Reports as per HPI and Reports no additional eye complaints ENT: Reports system reviewed and no additional complaints, except as documented and Reports as per HPI Comments: Right facial pain. Pain with swallowing. Cardiovascular: Cardiovascular: Reports as per HPI and Reports no additional cardiovascular complaints Respiratory: Respiratory: Reports as per HPI and Reports no additional respiratory complaints Gastrointestinal: Gastrointestinal: Reports as per HPI and Reports no additional gastrointestinal complaints Genitourinary: Genitourinary: Reports no additional female genitourinary complaints and Reports as per HPI Musculoskeletal: Musculoskeletal: Reports no additional musculoskeletal complaints and Reports as per HPI Integumentary/Breasts: Skin/Breast: Reports system reviewed and no additional complaints, except as docu and Reports as per HPI Neurologic: Reports system reviewed and no additional complaints, except as documented and Reports as per HPI Psychiatric: Psychiatric: Reports no additional psychiatric complaints and Reports as per HPI Endocrine: Endocrine: Reports no additional endocrine complaints and Reports as per HPI Hematologic/Lymphatic: Hematologic/Lymphatic: Reports no additional
[2021-09-18] MEDS: INSULIN GLARGINE (*BKC) 100 UNITS/ML 10 UNITS SUB-Q (15:36)
[2021-09-18 17:01] LABS: Glucose Point of Care 324 mg/dl (65-105)
[2021-09-18 18:51] LABS: Glucose Point of Care 271 mg/dl (65-105)
[2021-09-18] MEDS: carvediloL 25 MG TABLET PO (20:05)
[2021-09-18] MEDS: INSULIN GLARGINE (*BKC) 100 UNITS/ML 45 UNITS SUB-Q (21:21)
[2021-09-18 22:10] LABS: Glucose Point of Care 270 mg/dl (65-105)
[2021-09-19] VITALS (7 sets, daily range): BP systolic 128–153; BP diastolic 67–99; PULSE 72–90; RESP 18–19; TEMP 35.7–37.1; O2SAT 91–98
[2021-09-19] MEDS: LEVOTHYROXINE SODIUM 112 MCG TABLET PO (05:44)
[2021-09-19] MEDS: SODIUM CHLORIDE 0.9% IV 1,000 ML 125 ML IV CONT ×2 (07:40→15:50)
[2021-09-19 08:01] LABS: Glucose Point of Care 182 mg/dl (65-105)
[2021-09-19] MEDS: carvediloL 25 MG TABLET PO ×2 (08:41→21:34)
[2021-09-19] MEDS: GABAPENTIN 300 MG CAPSULE 600 MG PO ×3 (08:41→19:16)
[2021-09-19] MEDS: amLODIPine BESYLATE 5 MG TABLET 10 MG PO (08:41)
[2021-09-19] MEDS: ASPIRIN 81 MG ENTERIC TABLET PO (08:41)
[2021-09-19] MEDS: ENOXAPARIN 40 MG/0.4 ML SYRINGE SUB-Q (08:42)
[2021-09-19] MEDS: GLIMEPIRIDE 2 MG TABLET 4 MG PO (08:42)
[2021-09-19] MEDS: hydrALAZINE HCL 25 MG TABLET PO ×4 (08:42→21:34)
[2021-09-19 09:43] LABS: Basophils Absolute Auto 0.1 K/mm3 (0.0-0.1); Basophils Percent Auto 0.5 % (0.2-1.2); Eosinophils Absolute Auto 0.3 K/mm3 (0-0.3); Eosinophils Percent Auto 1.5 % (0-4.4); Hematocrit 37.3 % (37.0-47.0); Hemoglobin 12.5 g/dL (12.0-15.0); Immature Granulocyte Absolute 0.24 K/mm3 (0.00-0.031); Immature Granulocyte Percent A 1.2 % (0-0.5); Lymphocytes Absolute Auto 3.19 K/mm3 (0.9-3.2); Lymphocytes Percent Auto 15.9 % (18.3-44.2); Mean Corpuscular HGB Conc 33.5 g/dl (32-36); Mean Corpuscular Hemoglobin 32.1 pg (26-34); Mean Corpuscular Volume 95.6 fl (80-100); Mean Platelet Volume 11.6 fl (7.4-10.4); Monocytes Absolute Auto 2.1 K/mm3 (0.1-0.6); Monocytes Percent Auto 10.4 % (2.6-8.5); Neutrophils Absolute Auto 14.1 K/mm3 (1.3-6.7); Neutrophils Percent Auto 70.5 % (45.5-73.1); Platelet Count Result 346 k/mm3 (150-375); Red Cell Distribution Width 13.1 % (11.5-14.5); White Blood Count 20.1 K/mm3 (4.5-10.0)
[2021-09-19 11:28] LABS: Glucose Point of Care 270 mg/dl (65-105)
[2021-09-19] MEDS: INSULIN ASPART (*BKC) 100 UNITS/ML SUB-Q ×2 (12:03→17:27)
--- NOTE | 2021-09-19 16:08 | PM.IMPN ---
Progress Note: A&P Assessment and Plan (1) Acute parotitis: Code(s): K11.21 - Acute sialoadenitis Status: Acute Assessment and Plan: Per ENT recommendation, we will continue vanco and Zosyn. Blood cultures preliminary results are negative. Patient was instructed to massage the area , apply warm compresses every 4 hours as tolerated. Patient's white count has improved slightly from 23.8-20.. Continue IV Tylenol p.r.n. for discomfort. Patient stated that she does not do well with narcotics and that she has allergies to most narcotics. In addition patient carries a diagnosis of CKD and cannot receive nonsteroidal anti-inflammatories. (2) Diabetes: Code(s): E11.9 - Type 2 diabetes mellitus without complications Status: Chronic Assessment and Plan: Accu-Cheks ACin the 182-282 range. (3) Hyperlipidemia: Code(s): E78.5 - Hyperlipidemia, unspecified Status: Acute Assessment and Plan: Continue with atorvastatin. (4) Hypothyroidism: Code(s): E03.9 - Hypothyroidism, unspecified Status: Acute Assessment and Plan: Continue with levothyroxine. TSH is 3.24. (5) CKD (chronic kidney disease): Code(s): N18.9 - Chronic kidney disease, unspecified Status: Chronic Assessment and Plan: Creatinine is 1.7 today her last creatinine was 1.9 GFR is 31 today and GFR is 27. The patient has a environmental air specialist at [facility] and had an appointment to see her environmental air specialist tomorrow and has to cancel it. I explained that I could have the environmental air specialist see her here however the patient stated she would rather wait and see her is a outpatient. Will continue to monitor her creatinine since it is at her baseline. Please renally dose medications. Avoid nephrotoxic medications, including NSAIDs. (6) Neuropathy: Code(s): G62.9 - Polyneuropathy, unspecified Status: Chronic Assessment and Plan: Continue with gabapentin. (7) Tobacco abuse: Code(s): Z72.0 - Tobacco use Status: Chronic Assessment and Plan: The patient has been consulted on smoking cessation for approximately 5 minutes and the patient stated she does not require a nicotine patch at this time. Subjective Date/time seen: 09/19/21 16:08 S: Patient is examined at the bedside. She complains of right facial pain. There is significant a the right parotid swelling and pain, improved with IV acetaminophen. Review of Systems Review of Systems: All systems reviewed & are unremarkable except as noted in HPI and below Constitutional: Constitutional: Reports as per HPI and Reports no additional constitutional complaints Eyes: Eyes: Reports as per HPI and Reports no additional eye complaints ENT: Reports system reviewed and no additional complaints, except as documented, Reports as per HPI and Reports Normal hearing present Cardiovascular: Cardiovascular: Reports as per HPI and Reports no additional cardiovascular complaints Respiratory: Respiratory: Reports as per HPI, Reports no additional respiratory complaints and Reports no additional respiratory complaints Gastrointestinal: Gastrointestinal: Reports as per HPI and Reports no additional gastrointestinal complaints Genitourinary: Genitourinary: Reports no additional female genitourinary complaints and Reports as per HPI Musculoskeletal: Musculoskeletal: Reports no additional musculoskeletal complaints and Reports as per HPI Integumentary/Breasts: Skin/Breast: Reports system reviewed and no additional complaints, except as docu and Reports as per HPI Neurologic: Reports system reviewed and no additional complaints, except as documented, Reports as per HPI and Reports Normal hearing present Psychiatric: Psychiatric: Reports no additional psychiatric complaints and Reports as per HPI Endocrine: Endocrine: Reports no additional endocrine complaints and Reports as per HPI Hematologic/Lymphatic: Hematologic/Lymphatic: R
[2021-09-19 16:50] LABS: Glucose Point of Care 282 mg/dl (65-105)
[2021-09-19 21:16] LABS: Glucose Point of Care 282 mg/dl (65-105)
[2021-09-19] MEDS: ATORVASTATIN 20 MG TABLET PO (21:34)
[2021-09-19] MEDS: INSULIN GLARGINE (*BKC) 100 UNITS/ML 45 UNITS SUB-Q (21:35)
[2021-09-20] VITALS (8 sets, daily range): BP systolic 134–150; BP diastolic 65–89; PULSE 68–90; RESP 18; TEMP 36.2–36.8; O2SAT 86–94
[2021-09-20] MEDS: SODIUM CHLORIDE 0.9% IV 1,000 ML 125 ML IV CONT ×2 (02:59→12:38)
[2021-09-20] MEDS: LEVOTHYROXINE SODIUM 112 MCG TABLET PO (06:50)
[2021-09-20 07:29] LABS: Anion Gap 8 mmol/L (8-16); Blood Urea Nitrogen 23 mg/dL (7-17); Calcium 8.9 mg/dL (8.4-10.2); Carbon Dioxide 24 mmol/L (22-30); Chloride 98 mmol/L (98-107); Estimated CRCL calculation 34 ml/min; Estimated Glomerular Filt Rate 24; Glucose 181 mg/dL (65-110); Potassium 3.8 mmol/L (3.4-5.0); Sodium 130 mmol/L (137-145)
--- NOTE | 2021-09-20 07:49 | PM.PNGS ---
Progress Note: A&P Assessment and Plan (1) Acute parotitis: Code(s): K11.21 - Acute sialoadenitis Status: Acute Assessment and Plan: Patient seen p.m. of 09/19. Recommend continued antibiosis covering Gram-positive organisms as well as mixed anaerobes consider MRSA. Recommend continued aggressive gland milking and massage of the right parotid gland. Increased hydration and aggressive blood sugar control please obtain a CBC daily. Subjective Subjective Date/Time Seen: 09/20/21 07:49 Objective Data Vital Signs Vital Signs: Vital Signs - 24 hr 09/19/21 08:00 09/19/21 12:00 09/19/21 16:00 Temperature 37.1 C 36.7 C 36.8 C Pulse Rate 77 78 72 Respiratory Rate 18 18 19 Blood Pressure 153/75 H 140/67 151/75 H Pulse Oximetry 96 94 91 09/19/21 20:00 09/19/21 21:34 09/20/21 00:00 Temperature 35.7 C L 36.2 C L Pulse Rate 73 90 68 Respiratory Rate 18 18 Blood Pressure 146/74 H 134/68 Pulse Oximetry 93 94 09/20/21 04:00 Temperature 36.3 C L Pulse Rate 79 Respiratory Rate 18 Blood Pressure 148/74 H Pulse Oximetry 94 Intake/Output Intake/Output: Intake & Output 09/17/21 09/18/21 09/19/21 09/20/21 23:59 23:59 23:59 23:59 Intake Total 1650 5560 5820 740 Output Total 1050 Balance 1650 4510 5820 740 Meds/Results Medications: Active Medications Generic Name Dose Route Start Last Admin Trade Name Freq PRN Reason Stop Dose Admin Acetaminophen 650 mg 09/17/21 14:24 Acetaminophen 325 Mg Tablet PO Q4H PRN Mild Pain (1-3) or Fever Amlodipine Besylate 10 mg 09/18/21 09:00 09/19/21 08:41 Amlodipine Besylate 5 Mg Tablet PO 10 mg QAM FELICITAS Administration Aspirin 81 mg 09/18/21 09:00 09/19/21 08:41 Aspirin 81 Mg Enteric Tablet PO 81 mg QAM FELICITAS Administration Atorvastatin Calcium 20 mg 09/18/21 00:25 09/19/21 21:34 Atorvastatin 20 Mg Tablet PO 20 mg HS FELICITAS Administration Carvedilol 25 mg 09/18/21 21:00 09/19/21 21:34 Carvedilol 25 Mg Tablet PO 25 mg Q12HR FELICITAS Administration Dextrose 12.5 gm 09/17/21 14:02 Dextrose 50% 25 Gm/50 Ml Syringe IV PUSH PRN PRN Hypoglycemia Protocol Enoxaparin Sodium 40 mg 09/18/21 09:00 09/19/21 08:42 Enoxaparin 40 Mg/0.4 Ml Syringe SUB-Q 40 mg DAILY FELICITAS Administration Gabapentin 600 mg 09/18/21 09:00 09/19/21 19:16 Gabapentin 300 Mg Capsule PO 600 mg TID FELICITAS Administration Glimepiride 4 mg 09/18/21 08:00 09/19/21 08:42 Glimepiride 2 Mg Tablet PO 4 mg DAILY@0800 FELICITAS Administration Glucagon 1 mg 09/17/21 14:02 Glucagon For Inj 1 Mg Vial IM PRN PRN Hypoglycemia Protocol Glucose 15 gm 09/17/21 14:02 Glucose Oral Gel 15 Gm Of Glucse In 37.5 Gm Tube PO PRN PRN Hypoglycemia Protocol Hydralazine HCl 25 mg 09/18/21 13:30 09/19/21 21:34 Hydralazine Hcl 25 Mg Tablet PO 25 mg QID FELICITAS Administration Vancomycin HCl 1,500 mg in 500 mls @ 333.333 mls/hr 09/19/21 01:00 09/19/21 03:21 Vancomycin 1,500 Mg/D5w 500 Ml IVPB Infused Q36H FELICITAS Infusion Dextrose 1,000 mls @ 100 mls/hr 09/17/21 14:02 Dextrose 5% 1,000 Ml IVPB PRN PRN Hypoglycemia Protocol Sodium Chloride 1,000 mls @ 125 mls/hr 09/17/21 14:25 09/20/21 06:52 Normal Saline Iv IV CONT Not Given .Q8H FELICITAS Acetaminophen 1,000 mg in 100 mls @ 400 mls/hr 09/19/21 22:36 09/20/21 05:50 Ofirmev 1,000 Mg Ivpb IVPB 09/20/21 22:35 Infused Q6H PRN Infusion Pain Rated 4-6 Insulin Aspart 4 - 8 units 09/19/21 17:00 09/19/21 17:27 Insulin Aspart (*Bkc) 100 Units/Ml SUB-Q 5 units TIDWM FELICITAS Administration Protocol Insulin Glargine 45 units 09/17/21 21:00 09/19/21 21:35 Insulin Glargine (*Bkc) 100 Units/Ml SUB-Q 45 units HS FELICITAS Administration Insulin Glargine 16 units 09/20/21 09:00 Insulin Glargine (*Bkc) 100 Units/Ml 0.15 units/kg (16 units) SUB-Q DAILY FELICITAS
[2021-09-20] MEDS: hydrALAZINE HCL 25 MG TABLET PO ×4 (08:21→20:07)
[2021-09-20] MEDS: carvediloL 25 MG TABLET PO ×2 (08:21→20:07)
[2021-09-20] MEDS: GABAPENTIN 300 MG CAPSULE 600 MG PO ×3 (08:21→16:23)
[2021-09-20] MEDS: INSULIN GLARGINE (*BKC) 100 UNITS/ML 16 UNITS SUB-Q (08:27)
[2021-09-20 08:32] LABS: Glucose Point of Care 159 mg/dl (65-105)
[2021-09-20] MEDS: amLODIPine BESYLATE 5 MG TABLET 10 MG PO (09:57)
[2021-09-20] MEDS: ENOXAPARIN 40 MG/0.4 ML SYRINGE SUB-Q (09:57)
[2021-09-20] MEDS: GLIMEPIRIDE 2 MG TABLET 4 MG PO (09:57)
[2021-09-20] MEDS: ASPIRIN 81 MG ENTERIC TABLET PO (09:57)
--- NOTE | 2021-09-20 10:30 | PM.IMPN ---
Progress Note: A&P Assessment and Plan (1) Acute parotitis: Code(s): K11.21 - Acute sialoadenitis Status: Acute Assessment and Plan: Per ENT recommendation, we will continue vanco and Zosyn. Blood cultures preliminary results are negative. Patient was instructed to massage the area , apply warm compresses every 4 hours as tolerated. Patient's white count has improved slightly from 23.8-20.. Continue IV Tylenol p.r.n. for discomfort. Patient stated that she does not do well with narcotics and that she has allergies to most narcotics. In addition patient carries a diagnosis of CKD and cannot receive nonsteroidal anti-inflammatories. (2) Diabetes: Code(s): E11.9 - Type 2 diabetes mellitus without complications Status: Chronic Assessment and Plan: Accu-Cheks ACin the 182-282 range. (3) Hyperlipidemia: Code(s): E78.5 - Hyperlipidemia, unspecified Status: Acute Assessment and Plan: Continue with atorvastatin. (4) Hypothyroidism: Code(s): E03.9 - Hypothyroidism, unspecified Status: Acute Assessment and Plan: Continue with levothyroxine. TSH is 3.24. (5) CKD (chronic kidney disease): Code(s): N18.9 - Chronic kidney disease, unspecified Status: Chronic Assessment and Plan: Creatinine is slightly worse at 2.1 today . Vancomycin level was 12.7. Continue to monitor vancomycin trough closely. The patient has a roofer at [facility] and had an appointment to see her roofer tomorrow and has to cancel it. I explained that I could have the roofer see her here however the patient stated she would rather wait and see her is a outpatient. Will continue to monitor her creatinine since it is at her baseline. Please renally dose medications. Avoid nephrotoxic medications, including NSAIDs. (6) Neuropathy: Code(s): G62.9 - Polyneuropathy, unspecified Status: Chronic Assessment and Plan: Continue with gabapentin. (7) Tobacco abuse: Code(s): Z72.0 - Tobacco use Status: Chronic Assessment and Plan: The patient has been consulted on smoking cessation for approximately 5 minutes and the patient stated she does not require a nicotine patch at this time. (8) MAX (acute kidney injury): Code(s): N17.9 - Acute kidney failure, unspecified Status: Acute Assessment and Plan: A nonoliguric kidney injury with creatinine worsening to 2.1. Unclear cause. Blood combination of vancomycin in and Zosyn is prone to cause acute kidney injury. Monitor creatinine closely. Subjective Date/time seen: 09/20/21 11:50 S: Patient was seen and examined at the bedside. She complains of nasal congestion and right facial pain. Review of Systems Review of Systems: All systems reviewed & are unremarkable except as noted in HPI and below Constitutional: Constitutional: Reports as per HPI and Reports no additional constitutional complaints Eyes: Eyes: Reports as per HPI and Reports no additional eye complaints ENT: Reports system reviewed and no additional complaints, except as documented, Reports as per HPI and Reports Normal hearing present Cardiovascular: Cardiovascular: Reports as per HPI and Reports no additional cardiovascular complaints Respiratory: Respiratory: Reports as per HPI, Reports no additional respiratory complaints and Reports no additional respiratory complaints Gastrointestinal: Gastrointestinal: Reports as per HPI and Reports no additional gastrointestinal complaints Genitourinary: Genitourinary: Reports no additional female genitourinary complaints and Reports as per HPI Musculoskeletal: Musculoskeletal: Reports no additional musculoskeletal complaints and Reports as per HPI Integumentary/Breasts: Skin/Breast: Reports system reviewed and no additional complaints, except as docu and Reports as per HPI Neurologic: Reports system reviewed and no additional complaints, excep
[2021-09-20 12:15] LABS: Vancomycin Trough 12.7 ug/mL (10.0-20.0)
[2021-09-20 12:27] LABS: Glucose Point of Care 189 mg/dl (65-105)
[2021-09-20] MEDS: FLUTICASONE PROPIONATE 0.05% NA SPR 16 GM BTL (*BKC) 1 SPRAY NASAL ×2 (12:37→20:08)
--- NOTE | 2021-09-20 16:01 | PM.PNGS ---
Progress Note: A&P Assessment and Plan (1) Acute parotitis: Code(s): K11.21 - Acute sialoadenitis Status: Acute Assessment and Plan: Again, recommend CBC daily. If white count does not trend downward broaden antibiotic coverage. Strict blood sugar control. If white count does not decrease following broadening of coverage would recommend repeat CT with contrast. Subjective Subjective Date/Time Seen: 09/20/21 16:01 Objective Data Vital Signs Vital Signs: Vital Signs - 24 hr 09/19/21 20:00 09/19/21 21:34 09/20/21 00:00 Temperature 35.7 C L 36.2 C L Pulse Rate 73 90 68 Respiratory Rate 18 18 Blood Pressure 146/74 H 134/68 Pulse Oximetry 93 94 09/20/21 04:00 09/20/21 08:00 09/20/21 08:21 Temperature 36.3 C L 36.5 C Pulse Rate 79 80 80 Respiratory Rate 18 18 Blood Pressure 148/74 H 145/65 H Pulse Oximetry 94 90 09/20/21 12:00 Temperature 36.6 C Pulse Rate 74 Respiratory Rate 18 Blood Pressure 138/89 Pulse Oximetry 90 Intake/Output Intake/Output: Intake & Output 09/17/21 09/18/21 09/19/21 09/20/21 23:59 23:59 23:59 23:59 Intake Total 1650 5560 5820 2320 Output Total 1050 Balance 1650 4510 5820 2320 Meds/Results Medications: Active Medications Generic Name Dose Route Start Last Admin Trade Name Freq PRN Reason Stop Dose Admin Acetaminophen 650 mg 09/17/21 14:24 Acetaminophen 325 Mg Tablet PO Q4H PRN Mild Pain (1-3) or Fever Acetaminophen 650 mg 09/20/21 10:59 Acetaminophen 650 Mg Suppository RECTAL Q6H PRN Mild Pain (1-3) or Fever Acetaminophen 1,000 mg 09/20/21 10:59 Acetaminophen Elixir 325 Mg/10.15 Ml Udc PO Q6H PRN Mild Pain (1-3) or Fever Amlodipine Besylate 10 mg 09/18/21 09:00 09/20/21 09:57 Amlodipine Besylate 5 Mg Tablet PO 10 mg QAM FELICITAS Administration Aspirin 81 mg 09/18/21 09:00 09/20/21 09:57 Aspirin 81 Mg Enteric Tablet PO 81 mg QAM FELICITAS Administration Atorvastatin Calcium 20 mg 09/18/21 00:25 09/19/21 21:34 Atorvastatin 20 Mg Tablet PO 20 mg HS FELICITAS Administration Carvedilol 25 mg 09/18/21 21:00 09/20/21 08:21 Carvedilol 25 Mg Tablet PO 25 mg Q12HR FELICITAS Administration Dextrose 12.5 gm 09/17/21 14:02 Dextrose 50% 25 Gm/50 Ml Syringe IV PUSH PRN PRN Hypoglycemia Protocol Enoxaparin Sodium 40 mg 09/18/21 09:00 09/20/21 09:57 Enoxaparin 40 Mg/0.4 Ml Syringe SUB-Q 40 mg DAILY FELICITAS Administration Fluticasone Propionate 1 spray 09/20/21 11:05 09/20/21 12:37 Fluticasone Propionate 0.05% Na Spr 16 Gm Btl (*Bkc) NASAL 1 spray Q12HR FELICITAS Administration Gabapentin 600 mg 09/18/21 09:00 09/20/21 12:38 Gabapentin 300 Mg Capsule PO 600 mg TID FELICITAS Administration Glimepiride 4 mg 09/18/21 08:00 09/20/21 09:57 Glimepiride 2 Mg Tablet PO 4 mg DAILY@0800 FELICITAS Administration Glucagon 1 mg 09/17/21 14:02 Glucagon For Inj 1 Mg Vial IM PRN PRN Hypoglycemia Protocol Glucose 15 gm 09/17/21 14:02 Glucose Oral Gel 15 Gm Of Glucse In 37.5 Gm Tube PO PRN PRN Hypoglycemia Protocol Hydralazine HCl 25 mg 09/18/21 13:30 09/20/21 12:38 Hydralazine Hcl 25 Mg Tablet PO 25 mg QID FELICITAS Administration Vancomycin HCl 1,500 mg in 500 mls @ 333.333 mls/hr 09/19/21 01:00 09/20/21 12:38 Vancomycin 1,500 Mg/D5w 500 Ml IVPB 250 mls/hr Q36H FELICITAS Administration Dextrose 1,000 mls @ 100 mls/hr 09/17/21 14:02 Dextrose 5% 1,000 Ml IVPB PRN PRN Hypoglycemia Protocol Sodium Chloride 1,000 mls @ 125 mls/hr 09/17/21 14:25 09/20/21 12:38 Normal Saline Iv IV CONT 125 mls/hr .Q8H FELICITAS Administration Acetaminophen 1,000 mg in 100 mls @ 400 mls/hr 09/19/21 22:36 09/20/21 05:50 Ofirmev 1,000 Mg Ivpb IVPB 09/20/21 22:35 Infused Q6H PRN Infusion Pain Rated 4-6 Lactated Ringer's 500 mls @ 100 mls/hr 09/20/21 13:30 Lactated Ringe
[2021-09-20] MEDS: LACTATED RINGERS 500 ML 100 ML IV CONT (16:54)
[2021-09-20 17:17] LABS: Glucose Point of Care 295 mg/dl (65-105)
[2021-09-20] MEDS: INSULIN ASPART (*BKC) 100 UNITS/ML SUB-Q (17:24)
--- NOTE | 2021-09-20 17:34 | PC.NURSE ---
Found pt )2 saturation at 86% while sleeping, pt sleeps with head tucked into chest, informed pt to wake up and sit up straight pt uncomplicated but did straight up a little, O2 saturation still 88%, placed on 2L Md Joni CAMPBELL informed, MD Quinones placing orders for cpap at night. Pt saturation on 2L 91%.
[2021-09-20] MEDS: ATORVASTATIN 20 MG TABLET PO (20:07)
[2021-09-20] MEDS: INSULIN GLARGINE (*BKC) 100 UNITS/ML 45 UNITS SUB-Q (21:17)
[2021-09-20 21:23] LABS: Glucose Point of Care 224 mg/dl (65-105)
[2021-09-21] VITALS (7 sets, daily range): BP systolic 136–152; BP diastolic 70–79; PULSE 68–69; RESP 18–21; TEMP 36.1–36.6; O2SAT 90–95
--- NOTE | 2021-09-21 01:00 | PCRCNOTE ---
Patient refused overnight pulse oximetry study. Stated she is not in her normal baseline and doesn't want this done because it will lead to other health issues and they'll have me on one of those CPAPs . She states she sleeps stretched out at home and unable to sleep normal here so it will be the wrong results.
--- NOTE | 2021-09-21 01:07 | PC.NURSE ---
She is refusing cont pulse ox monitoring, she states that due to her right facial swelling/ pain, she is unable to lay on her side like she normally does, the only comfortable way to sleep at this point is sitting up which causes her head to fall forward. Applied beside vital machine cont pulse ox for monitoring, on 2LNC at this time.
[2021-09-21] MEDS: ACETAMINOPHEN ELIXIR 325 MG/10.15 ML UDC 1000 MG PO (03:27)
[2021-09-21] MEDS: LEVOTHYROXINE SODIUM 112 MCG TABLET PO (06:13)
[2021-09-21 06:41] LABS: Hematocrit 35.1 % (37.0-47.0); Hemoglobin 11.1 g/dL (12.0-15.0); Mean Corpuscular HGB Conc 31.6 g/dl (32-36); Mean Corpuscular Hemoglobin 31.4 pg (26-34); Mean Corpuscular Volume 99.4 fl (80-100); Mean Platelet Volume 11.6 fl (7.4-10.4); Platelet Count Result 285 k/mm3 (150-375); Red Blood Count 3.53 M/mm3 (4.2-5.4); Red Cell Distribution Width 13.4 % (11.5-14.5); White Blood Count 11.9 K/mm3 (4.5-10.0)
[2021-09-21 08:32] LABS: Anion Gap 7 mmol/L (8-16); Blood Urea Nitrogen 23 mg/dL (7-17); CRP 8.4 mg/dL (<1.0); Calcium 9.2 mg/dL (8.4-10.2); Carbon Dioxide 23 mmol/L (22-30); Chloride 102 mmol/L (98-107); Estimated CRCL calculation 35 ml/min; Estimated Glomerular Filt Rate 26; Glucose 112 mg/dL (65-110); Sodium 132 mmol/L (137-145)
[2021-09-21] MEDS: HEPARIN SODIUM 5,000 UNITS/ML VIAL 5000 UNITS SUB-Q (10:59)
[2021-09-21] MEDS: amLODIPine BESYLATE 5 MG TABLET 10 MG PO (11:00)
[2021-09-21] MEDS: ASPIRIN 81 MG ENTERIC TABLET PO (11:00)
[2021-09-21] MEDS: carvediloL 25 MG TABLET PO (11:00)
[2021-09-21] MEDS: FLUTICASONE PROPIONATE 0.05% NA SPR 16 GM BTL (*BKC) 1 SPRAY NASAL (11:00)
[2021-09-21] MEDS: GLIMEPIRIDE 2 MG TABLET 4 MG PO (11:00)
[2021-09-21] MEDS: GABAPENTIN 300 MG CAPSULE 600 MG PO ×2 (11:00→12:50)
[2021-09-21] MEDS: hydrALAZINE HCL 25 MG TABLET PO (11:01)
[2021-09-21] MEDS: INSULIN GLARGINE (*BKC) 100 UNITS/ML 16 UNITS SUB-Q (11:09)
[2021-09-21 11:43] LABS: Glucose Point of Care 147 mg/dl (65-105)
--- NOTE | 2021-09-21 18:53 | PM.IMPN ---
Progress Note: A&P Assessment and Plan (1) Acute parotitis: Code(s): K11.21 - Acute sialoadenitis Status: Acute Assessment and Plan: Per ENT recommendation, patient was treated with vanco and Zosyn. Blood cultures preliminary results are negative. Patient was instructed to massage the area , apply warm compresses every 4 hours as tolerated. Patient's white count has improved slightly from 23.8-20.. Continue IV Tylenol p.r.n. for discomfort. Patient stated that she does not do well with narcotics and that she has allergies to most narcotics. In addition patient carries a diagnosis of CKD and cannot receive nonsteroidal anti-inflammatories. Patient improved clinically and symptomatically. WBC improved from 20 to 11.9. Patient will be discharged home to on a 7 day course of clindamycin. Patient is agreeable with the plan. She will follow-up with her primary care provider. If no improvement within for 5 days, she will follow-up with Dr. Naranjo as an outpatient. (2) Diabetes: Code(s): E11.9 - Type 2 diabetes mellitus without complications Status: Chronic Assessment and Plan: Fasting blood glucose was 112. Accu-Chek was 147 today. (3) Hyperlipidemia: Code(s): E78.5 - Hyperlipidemia, unspecified Status: Acute Assessment and Plan: Continue with atorvastatin. (4) Hypothyroidism: Code(s): E03.9 - Hypothyroidism, unspecified Status: Acute Assessment and Plan: Continue with levothyroxine. TSH is 3.24. (5) CKD (chronic kidney disease): Code(s): N18.9 - Chronic kidney disease, unspecified Status: Chronic Assessment and Plan: Creatinine is still at 2.0 today, despite gentle hydration. Vancomycin level was 12.7. Continue to monitor vancomycin trough closely. The patient has a base engineer at [facility] and had an appointment to see her base engineer tomorrow and has to cancel it. I explained that I could have the base engineer see her here however the patient stated she would rather wait and see her is a outpatient. Will continue to monitor her creatinine since it is at her baseline. Please renally dose medications. Avoid nephrotoxic medications, including NSAIDs. Patient will follow-up with primary care provider in her with from discharge. (6) Neuropathy: Code(s): G62.9 - Polyneuropathy, unspecified Status: Chronic Assessment and Plan: Continue with gabapentin. (7) Tobacco abuse: Code(s): Z72.0 - Tobacco use Status: Chronic Assessment and Plan: The patient has been consulted on smoking cessation for approximately 5 minutes and the patient stated she does not require a nicotine patch at this time. (8) MAX (acute kidney injury): Code(s): N17.9 - Acute kidney failure, unspecified Status: Acute Assessment and Plan: A nonoliguric kidney injury with creatinine worsening to 2.1. Unclear cause. Blood combination of vancomycin in and Zosyn is prone to cause acute kidney injury. Monitor creatinine closely. Creatinine stable today at 2.0. Discharge on clindamycin. Follow-up with primary care provider. Subjective Date/time seen: 09/21/21 16:53 P: Patient was examined at the bedside. She is feeling a lot better. Pain is improving. There is no difficulty swallowing. Patient is anxious to go home. Review of Systems Review of Systems: All systems reviewed & are unremarkable except as noted in HPI and below Constitutional: Constitutional: Reports as per HPI and Reports no additional constitutional complaints Eyes: Eyes: Reports as per HPI and Reports no additional eye complaints ENT: Reports system reviewed and no additional complaints, except as documented, Reports as per HPI and Reports Normal hearing present Cardiovascular: Cardiovascular: Reports as per HPI and Reports no additional cardiovascular complaints Respiratory: Respiratory: Reports as per HPI, Reports no addition
--- NOTE | 2021-09-21 18:58 | PM.DS ---
DS: Admitting Diagnosis Discharge Date 09/21/21 Admitting Diagnosis (1) Acute parotitis: (2) Diabetes: (3) Hyperlipidemia: (4) Hypothyroidism: (5) CKD (chronic kidney disease): (6) Neuropathy: (7) Tobacco abuse: DS: Discharge Diagnosis Discharge Diagnosis (1) Acute parotitis: Code(s): K11.21 - Acute sialoadenitis Status: Acute Assessment and Plan: Per ENT recommendation, patient was treated with vanco and Zosyn. Blood cultures preliminary results are negative. Patient was instructed to massage the area , apply warm compresses every 4 hours as tolerated. Patient's white count has improved slightly from 23.8-20.. Continue IV Tylenol p.r.n. for discomfort. Patient stated that she does not do well with narcotics and that she has allergies to most narcotics. In addition patient carries a diagnosis of CKD and cannot receive nonsteroidal anti-inflammatories. Patient improved clinically and symptomatically. WBC improved from 20 to 11.9. Patient will be discharged home to on a 7 day course of clindamycin. Patient is agreeable with the plan. She will follow-up with her primary care provider. If no improvement within for 5 days, she will follow-up with Dr. Naranjo as an outpatient. (2) Diabetes: Code(s): E11.9 - Type 2 diabetes mellitus without complications Status: Chronic Assessment and Plan: Fasting blood glucose was 112. Accu-Chek was 147 today. (3) Hyperlipidemia: Code(s): E78.5 - Hyperlipidemia, unspecified Status: Acute Assessment and Plan: Continue with atorvastatin. (4) Hypothyroidism: Code(s): E03.9 - Hypothyroidism, unspecified Status: Acute Assessment and Plan: Continue with levothyroxine. TSH is 3.24. (5) CKD (chronic kidney disease): Code(s): N18.9 - Chronic kidney disease, unspecified Status: Chronic Assessment and Plan: Creatinine is still at 2.0 today, despite gentle hydration. Vancomycin level was 12.7. Continue to monitor vancomycin trough closely. The patient has a web content editor at [facility] and had an appointment to see her web content editor tomorrow and has to cancel it. I explained that I could have the web content editor see her here however the patient stated she would rather wait and see her is a outpatient. Will continue to monitor her creatinine since it is at her baseline. Please renally dose medications. Avoid nephrotoxic medications, including NSAIDs. Patient will follow-up with primary care provider in her with from discharge. (6) Neuropathy: Code(s): G62.9 - Polyneuropathy, unspecified Status: Chronic Assessment and Plan: Continue with gabapentin. (7) Tobacco abuse: Code(s): Z72.0 - Tobacco use Status: Chronic Assessment and Plan: The patient has been consulted on smoking cessation for approximately 5 minutes and the patient stated she does not require a nicotine patch at this time. (8) MAX (acute kidney injury): Code(s): N17.9 - Acute kidney failure, unspecified Status: Acute Assessment and Plan: A nonoliguric kidney injury with creatinine worsening to 2.1. Unclear cause. Blood combination of vancomycin in and Zosyn is prone to cause acute kidney injury. Monitor creatinine closely. Creatinine stable today at 2.0. Discharge on clindamycin. Follow-up with primary care provider. DS: Summary Hospital Course Reason for hospitalization: Right facial pain X 3 days. Hospital Course: Please refer to admission H and P. Briefly, this is a 61-year-old female patient who has been having right side facial pain that started on was a small nodule 3 days ago. The patient could not determine the cause of this pain. The patient stated she had similar symptoms in the past and that it did resolve on its own. She stated that she cannot take narcotics and that her pain level was very high this time when the area is palpated. She had no fevers or chills or n
== END 2021-09-21 16:25 | disposition home or self-care (01) | DRG 115 ==
LOC: ANHED 14:32 → ANH3MEDSUR 16:52
PROVIDERS: Nurse Practitioner; Otolaryngology; Admitting Provider Internal Medicine; Emergency Provider Nurse Practitioner; PCP Family Medicine; Visit Provider Internal Medicine
DX: K11.21 Acute sialoadenitis (principal); N17.9 Acute kidney failure, unspecified; E11.22 Type 2 diabetes mellitus with diabetic chronic kidney disease; I12.9 Hypertensive chronic kidney disease with stage 1 through stage 4 chronic kidney disease, or unspecified chronic kidney disease; N18.9 Chronic kidney disease, unspecified; E11.42 Type 2 diabetes mellitus with diabetic polyneuropathy; E78.5 Hyperlipidemia, unspecified; E03.9 Hypothyroidism, unspecified; F17.210 Nicotine dependence, cigarettes, uncomplicated; Z79.4 Long term (current) use of insulin; Z79.82 Long term (current) use of aspirin; Z79.899 Other long term (current) drug therapy; Z88.5 Allergy status to narcotic agent; Z86.73 Personal history of transient ischemic attack (TIA), and cerebral infarction without residual deficits; Z95.0 Presence of cardiac pacemaker
CPT/HCPCS: 36415; 70486; 80048; 80053; 80202; 82728; 82948; 83036; 83605; 83735; 84443; 85025; 85027; 85652; 86140; 87040; 96361; 96365; 96366; 96367; 96372; 96375; 96376; 99285; A9270; G0378; G0379; J0131; J0360; J1644; J1650; J1815; J2543; J3010; J3370; J7030; J7120